=== PATIENT | female | born 1950 | race Hispanic/Latino ===

== ENCOUNTER 2017-03-06 08:58 | Day surgery (SDC) | payer MEDICARE, MEDICAID ==
[~2017-03-06] VITALS: Ht 154.9 cm; Wt 95.0 kg
[2017-03-06] VITALS (11 sets, daily range): BP systolic 123–152; BP diastolic 46–69; PULSE 55–79; RESP 16–26; O2SAT 96–99
--- NOTE | 2017-03-06 07:33 | PCM.HPANE ---
Patient Data Date of Service: Mar 06, 2017 Surgeon Admitting Provider: Attending Provider:Bridger Iraheta MD Primary Care Physician:Jimmy Zepeda MD Other Provider:Brandan Calvo Anesthesia Reason for Visit Cystocele,Rectocele,Vault Prolapse,Stress Incontin Ht/WT & BMI Height (Feet): 5 Height (Inches): 1.5 Weight (Kilograms): 98.24 Body Mass Index 40.00 Allergies Coded Allergies: ibuprofen (Verified Allergy, Unknown, tongue swelling, 03/05/17) Past Anesthesia History Anesthesia History: Denies:: Abnormal Airway, Anesthesia Reactions, Difficult Intubation, Fam Anesthesia Reaction, Fam Malignant Hypertherm, Malignant Hyperthermia Diabetes History Hx Diabetes?: No Type of Diabetes: Diet Controlled MRSA MRSA: No Medications Hypertension Medication: Yes Home Meds Incl Beta Rickey: Yes Reported Medications Leflunomide 20 Mg [id number] Mg PO 03/06/17 Albuterol HFA (Proair HFA)8.5 Gm Hfa.aer.ad2 Puffs INHALATION Q4H PRN For Shortness of Breath #1 INHALER 03/05/17 Paroxetine 10 Mg Afolgq80 Mg PO HS 30 Days Ref 0 03/05/17 Hydroxychloroquine Sulfate 200 Mg [id number] Mg PO DAILY #30 TABLET Ref 0 03/05/17 Atenolol 25 Mg [id number] Mg PO DAILY #30 TABLET Ref 0 03/05/17 Discontinued Reported Medications Atenolol-Expunged Drug, Do Not Renew! 25 Mg [id number] Mg PO DAILY 09/19/13 History History of ENT Problems?: Yes HEENT History: Positive for:: TMJ (poss grinds- had nightguard but lost it) Denies:: Abnormal Airway Cataracts Difficult Intubation Dysphagia Glaucoma Hearing Problem Sinus Problem Denture Type: None Teeth Condition: Within Normal Limits Broken Teeth Other HEENT Pertinent History: lost cap- upper left Hx of Heart Problems?: Yes Cardiovascular History: Positive for:: Hypertension Irregular Heartbeat (palpitations r/t stress) Denies:: AICD Abdominal Aortic Aneurism Atrial Fibrillation Cardiac Surgery Chest Pain Congestive Heart Failure Coronary Artery Disease Edema Heart Murmur Pacemaker Peripheral Vascular Rheumatic Fever Thrombophlebitis Valvular Heart Disease (echo 02/23- ef 60-65%, stress test 02/23) Hx of Respiratory Problem?: Yes Respiratory History: Positive for:: Asthma Dyspnea (thinks it is related to stress) Use of C-PAP Machine Use of Inhalers / NEBS Denies:: COPD Chest Surgery Cough Emphysema Hemoptysis Oxygen Administration Pneumonia Pulmonary Embolism Tuberculosis Hx Neurologic Problems?: No Neurological History: Denies:: Alzheimer's Disease CVA Dementia Dizziness Headaches Multiple Sclerosis Parkinson's Disease Peripheral Neuropathy Seizures TIA Hx of GI Problems?: Yes Gastrointestinal History: Denies:: Cirrhosis Diverticulitis Gall Bladder Disease Gastroesphageal Reflux Gastrointestinal Bleeding Heartburn Hepatitis Hiatal Hernia Liver Disease Rectal Bleeding Hx of Problems?: Yes Genitourinary History: Denies:: HX of Hemodialysis Kidney Stones Urinary Tract Infection HX of Peritoneal Dialysis: No Female Hx: Denies:: Currently Endometriosis Pelvic Inflammatory Problems with Breasts? Hx Musculoskeletal Problems?: Yes Musculoskeletal History: Positive for:: Back Injury (hx of back surgery) Musculoskeletal Trauma (sees ortho for knee injections, needing knee injections) Rheumatoid Arthritis Denies:: Degenerative Joint Fibromyalgia Joint Replacement Myasthenia Gravis Osteoarthritis Systemic Lupus Psycho Social History: Positive for:: Anxiety Hx Depression Denies:: Bipolar Disorder Suicide Attempt Hx Surgeries?: Yes (hysterectomy, appendix, tubal, back surgery, veins stripped , both knees) Hx Any Other Health Problems?: Yes Other History: Denies:: Cancer Endocrine Disease Hospitalization Thyroid Disease (hx of thyroid bx-) History Blood Transfusions: Denies:: Accept Blood Products? Blood Transfuse Reaction Blood Transfusions Hx Diabetes: No Hx Alcohol Use: NoHx Substance Use: No Smoking Status: Never Smoker Have You Smoked inLast 12 mo: No Stop/Bang P-Blood Pressure: treated: Yes B- Body Mass Index > 35 kg/m2: Yes A- Age over 50: Yes N- Neck Large Circumference: No G- Gender Male: No MINDY Risk Assessment: Low Risk, <3 Yes Risk Assessment Category Category 1A: Patient has history of documented sleep apnea, and HAS NOT received any narcotic, sedative or anesthesia administration during this stay. Category 1B: Patient has history of documented sleep apnea, and HAS received any narcotic , sedative or anesthesia administration during this stay Category 2: Patient has SUSPECTED Obstructive Sleep Apnea, and HAS received any narcotic , sedative or anesthesia administration during this stay. Category 3: Patient has SUSPECTED Obstructive Sleep Apnea and HAS NOT received narcotic, sedative or anesthesia administration during this stay. Category 4: Outpatient in Procedural Areas with known sleep apnea or who screen positive for High Risk via the STOP/BANG questionnaire. Exam Exam General Appearance: Alert, Oriented X3, Cooperative, No Acute Distress HEENT/AIRWAY: MP 2 Lungs: Clear to Auscultation, Normal Air Movement Heart: Exam Unremarkable, Regular Rate/Rhythm, No Murmurs/Rubs/Gallops Plan Impression Patient chart reviewed, patient interviewed and anesthestic plan with risks, benefits, and alternatives discussed, and informed consent obtained. NPO per Anesth. Guidelines: Yes ASA Physical Status: ASA2 Mod Systemic Disease Anesthetic Plan: GA Bene/Risks/Altern/Consents: Yes HP Complete Prior to Induction: Yes Dru Rodríguez MD Mar 06, 2017 07:32
[~2017-03-06 08:58] MED LIST: ALBU8.5H2 INHALATION; ATEN25TA PO; CeFAZolin Inj 2 GM in IV Premix 1 EACH IV SCH; HYDR200T5 PO; Lactated Ringer's 1,000 ML IV ONE; Lactated Ringer's 1,000 ML IV SCH; PARO10TA2 PO; Phenazopyridine 97.5 mg Tablet PO SCH
[2017-03-06] MEDS ORDERED: Neostigmine 1 mg/mL 10 mL Inj ONE (08:59)
[2017-03-06] MEDS ORDERED: Glycopyrrolate 0.2 MG/ML 1mL Inj ONE (08:59)
[2017-03-06] MEDS ORDERED: hydrALAZINE 20 mg/mL Inj ONE (08:59)
[2017-03-06] MEDS ORDERED: Rocuronium 10 mg/mL 5 mL Inj ONE (08:59)
[2017-03-06] MEDS ORDERED: fentaNYL-PF 50 mCg/mL 2 mL Inj ONE ×2 (08:59→16:41)
[2017-03-06] MEDS ORDERED: Succinylcholine Chloride 20 mg/mL 5 mL Inj ONE (08:59)
[2017-03-06] MEDS ORDERED: Propofol 10,000 mCg/mL 20 mL Inj ONE (08:59)
[2017-03-06] MEDS ORDERED: Ondansetron 2 mg/mL 2 mL Inj ONE (08:59)
[2017-03-06] MEDS ORDERED: Dexamethasone 4 mg/mL Inj ONE (08:59)
[2017-03-06] MEDS ORDERED: CeFAZolin 2 Gm/50 mL D5W Duplex Bag IV ONE (09:03)
[2017-03-06] MEDS ORDERED: Phenazopyridine 97.5 mg Tablet ONE (09:04)
[2017-03-06] MEDS ORDERED: LEFL20TA18 PO (10:15)
[2017-03-06] MEDS ORDERED: Lactated Ringer's 1,000 ML IV SCH (13:03)
[2017-03-06] MEDS ORDERED: Lactated Ringer's 500 ML IV PRN (13:03)
[2017-03-06] MEDS ORDERED: Ondansetron 2 mg/mL 2 mL Inj IVPUSH PRN ×2 (13:05→16:15)
[2017-03-06] MEDS ORDERED: MetoCLOpramide 5 mg/mL 2 mL Inj IVPUSH PRN ×2 (13:05→16:15)
[2017-03-06] MEDS ORDERED: EPHEDrine Sulfate 50 mg/mL Inj IVPUSH PRN (13:05)
[2017-03-06] MEDS ORDERED: Dexamethasone 4 mg/mL Inj IVPUSH PRN (13:05)
[2017-03-06] MEDS ORDERED: Phenylephrine 10,000 mCg/mL Inj IVPUSH PRN (13:05)
[2017-03-06] MEDS ORDERED: HYDROmorphone 1 mg/mL Inj IVPUSH PRN (13:05)
[2017-03-06] MEDS ORDERED: fentaNYL-PF 50 mCg/mL 2 mL Inj IVPUSH PRN (13:05)
[2017-03-06] MEDS ORDERED: Lidocaine 1%-Epi 1:100,000 20 mL Inj INJ ONE ×2 (13:07→14:56)
[2017-03-06] MEDS ORDERED: Gentamicin 40 mg/mL 2 mL Inj IRRIGATION ONE ×2 (13:07→14:49)
[2017-03-06] MEDS ORDERED: Sodium Chloride Bacteriostatic 30 mL Inj INJ ONE ×2 (13:07→14:57)
[2017-03-06] MEDS ORDERED: Lactated Ringer's 1,000 ML IV ONE (13:22)
[2017-03-06] MEDS ORDERED: Estrogens Conjugated 30 Gm Vaginal Cream VAGINAL ONE (15:52)
[2017-03-06] MEDS ORDERED: diphenhydrAMINE 25 mg Capsule PO PRN (16:15)
[2017-03-06] MEDS ORDERED: Acetaminophen IV 1,000 MG in IV Premix 1 EACH IV ONE (16:15)
[2017-03-06] MEDS ORDERED: Alum-Mag Hydrox-Simeth 30 mL Suspension PO PRN (16:15)
[2017-03-06] MEDS ORDERED: Albuterol HFA 60 Puff 8 Gm Inhaler INHALATION PRN (16:25)
--- NOTE | 2017-03-06 16:28 | PCM.ANEP1 ---
Post Anesthesia PACU Phase 1 Assessment Vital Signs Vital Signs Date Time Temp Pulse Resp B/P Pulse Ox O2 Delivery O2 Flow Rate FiO2 03/06/17 09:32 36.0 55 16 133/47 97 Room Air Anesthetic Administered: GA Level of Alertness: Sleepy, easy to arouse GOODMAN's with Equal Strength: Yes Pain: No Nausea or Vomiting: No CV Function & Hydration Stable: Yes Airway Device: Endotrachial Tube Oxygen Delivery: Simple Mask Lungs: Clear to Auscultation, Normal Air Movement Dermatome Level: Full Sensation PACU Phase 2 Assessment Complications: No Follow up Care: No Patient Instructions Provided: Yes rDu Rodríguez MD Mar 06, 2017 16:28
[2017-03-06] MEDS ORDERED: Albuterol 2.5 mg/3 mL Inhalation Solution NEB PRN (17:40)
[2017-03-06] MEDS: HYDROcodone-APAP 5-325 mg Tablet PO PRN (18:00)
--- NOTE | 2017-03-06 18:00 | NUR ---
received to room 1008 from PACU alert, oriented, speaks Mauritian fairly well, VSS, pt still quite uncomfortable, She has chronic back pain so had difficulty finding a comfortable position. 2 Vicodin given, pt still uncomfortable so gave 2mg Morphine. Conn has orange urine due to Pyridium. Scant vag bleeding. Family present
[2017-03-06] MEDS: 0.9% Sodium Chloride 1,000 ML IV SCH (18:08)
[2017-03-06 18:17] LABS: APPEARANCE,URINE CLEAR (CLEAR,HAZY); COLOR,URINE DARK YELLOW (YELLOW); OCCULT BLOOD,URINE NEGATIVE (NEGATIVE); PH,URINE 5.5 (5.0-8.0); UROBILINOGEN,URINE NORMAL (NORMAL)
[2017-03-06] MEDS: Insulin Human REGular 300 Unit/3 mL Inj SUBQ SCH (20:30)
[2017-03-06] MEDS ORDERED: PARoxetine 20 mg Tablet PO SCH (21:00)
[2017-03-07] VITALS: BP 165/72; PULSE 71; RESP 18; O2SAT 99
--- NOTE | 2017-03-07 01:49 | PCM.SURGOP ---
Surgical Operative Report Date of Service: Mar 06, 2017 Pre Operative Diagnosis 1. Rectocele N81.6 (618.04): 2. Cystocele, midline N81.11 (618.01): 3. 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 Urodynamic stress incontinence N39.3 Post Operative Diagnosis 1. POPQ stage 3 Rectocele N81.6 (618.04) and deficient rectovaginal fascia 2. POPQ stage 2 Cystocele, midline N81.11 (618.01): 3. 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 Urodynamic stress incontinence N39.3 Procedure: 1. anterior repair 2. posterior repair with Xenform biologic graft augmentation, 3. high uterosacral ligament vaginal vault suspension and enterocele repair 4. TVT-obturator sling and cystoscopy. Surgeon and Data Science And Iot Manager: Surgeon: Bridger Iraheta MD Assistants: Paul Love MD Indication for Procedure Her assessment to date includes: 1. Rectocele N81.6 (618.04): 2. Cystocele, midline N81.11 (618.01): 3. 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 Vaginal atrophy N95.2 (627.3): 5. 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 The patient is a candidate for surgical prolapse management in the form of anterior repair and posterior repair with possible Xenform biologic graft augmentation, high uterosacral ligament vaginal vault suspension and enterocele repair and TVT-obturator sling/cystoscopy. The patient signed the consent form. She agreed with the risks, benefits, and alternatives to surgery. The risks included but not limited to recurrence or persistence of prolapse, recurrence of persistence of incontinence, development of voiding dysfunction, development of urinary urgency, urgency incontinence, frequency, and need for intermittent self-catheterization or prolonged indwelling catheterization, injury to other organs including bladder, bowel, nerves or blood vessels, need for temporary colostomy or urinary stenting. Development of vaginal scarring, dyspareunia, defecatory dysfunction, recurring pain, hematoma formation, urinary tract infection, cellulitis, necrotizing fascitis, and medical risks including myocardial infarction, stroke or VTE. She also understood the FDA warnings associated with the use of vaginal mesh (dysparunia, vaginal erosion, erosion into bowel/bladder/urethra, requiring further surgery to correct these complications). The patient understood the risks and benefits and consented to surgery. She is a Faith and refuses blood transfusion. She understands that this could put her health in jeopardy if critically anemic or hemorrhaging. However after discussion with her jewish elders, she will accept fractions from red cells/white cells/platelets/plasma. Findings: see dictation Procedure Details SURGICAL TECHNIQUE: The patient was brought to the operating room and was placed under general anesthesia. She was prepped and draped in the normal fashion for vaginal surgery with the legs in Yellofin stirrups. She was given a dose of IV antibiotics intraoperatively. She received 200 mg of oral pyridium in the pre-operative holding area. 1..Posterior colpoperineorrhaphy with Xenform graft augmentation: Lidocaine 0.5 % with 1:200,000 of epinephrine was infiltrated along the perineum and posterior vaginal wall mucosa. A POPQ stage 3 apical and posterior vaginal prolapse was noted. A small, thin analisa-shaped wedge of perineum was excised. A Midline vertical incision was made through the posterior vagina with a scalpel. The vaginal mucosa was dissected off the underlying rectovaginal tissues. It was noted the fascial tissues were thin and deficient especially at the area of the apex and was composed mainly of adipose tissue. During the apical dissection, an enterocele sac was encountered and this was entered with sharp dissection with Metzenbaum scissors. We then proceeded with a vault suspension and would later resume with the posterior repair. 2. High uterosacral ligament vaginal vault suspension, cystoscopy & enterocele repair: Several mini laparotomy sponges were packed to retract the bowel upwards. A pair of Allis clamps were placed along the intraperitoneal portions of the vagina at the 5 and 7 o' clock positions. Tension along these Allis clamps allowed for identification of the uterosacral ligaments bilaterally. Also the ureters were carefully palpated to avoid penetrating them with suture. A pair of 0 Vicryl sutures were passed around the uterosacral ligaments of the level of the ischial spines bilaterally, totalling 4. Cystoscopy was performed while the vault sutures were placed under tension. Brisk spillage of pyridium-stained urine was noted at both ureteric orifices. Next, two 3-0 Prolene sutures were placed transversely through the cul-de-sac peritoneum. This was performed while using a gloved finger in the rectum as to avoid penetrating the underlying rectal mucosa. Tying these sutures obliterated the enterocele. The rectocele was plicated in a site-specific fashion first using 2-0 Vicryl suture in a circular, purse-string fashion along the apical and mid portion of the posterior segment, then in a midline plicated fashion with 2-0 Vicryl suture in an interrupted fashion. A rectangular piece of Xenform graft was then sutured above the plicated tissue. The apical portion of this graft was secured at the level of the enterocele repair using 2-0 vicryl suture. Laterally and distally the graft was secured using 2-0 Vicryl suture in interrupted fashion. Moderate excess posterior vaginal mucosa was needed to be excised. 3. Anterior colporrhaphy: Lidocaine 0.5% with 1/91472 epinephrine was infiltrated along the anterior vaginal wall mucosa. A POPQ stage 2 anterior vaginal descent was noted. A midline vertical incision was made through the anterior vaginal wall. The vaginal wall was dissected off the underlying pubocervical and pubovesical fascia. The dissection was extended laterally beyond the ischial pubic rami. It was noted that the pubocervical and pubovesical fascial tissues were not deficient or thin. No paravaginal defects were noted. The cystocele was plicated in 2 layers, the first layer with 2-0 Vicryl suture in interrupted fashion, the second layer with 2-0 Tycron suture in an interrupted fashion. No excess anterior vaginal mucosa needed to be excised. The high uterosacral ligament vaginal vault suspension sutures were passed through the planned apex of the vagina. The vagina was then reapproximated using 3-0 Vicryl suture in a running locked fashion. Perineum was reapproximated using 2-0 Vicryl suture in an interrupted fashion. The skin was reapproximated using 3-0 Vicryl suture in a subcuticular fashion. The high uterosacral ligament vaginal vault suspension sutures were tied and this elevated the apex of the vagina high up into the hollow of the sacrum. Vaginal exam allowed for the insertion of 3 gloved fingers. 4. TVT-Obturator sling and cystoscopy. Lidocaine 0.5% with epinephrine was infiltrated along the anterior vaginal wall mucosa at the level of the mid urethra. Midline vertical incision was made at that level, 2 periurethral tunnels were created with Metzenbaum scissors. Two stab incisions were created at the skin at the groin at a level 2 cm superior to the external urethral meatus and 2 cm lateral to the fold created between the vulva and thigh. Conn catheter had already been inserted. A butterfly guide was inserted into the right periurethral tunnel, a curved helical needle was inserted on top of the guide and rotated out to the ipsilateral skin incision. The same procedure was performed on the contralateral side. Next the Conn catheter was removed. Cystoscopy was performed. There was no inadvertent penetration of the sling to the vagina, urethra or bladder. Cystoscopy revealed a normal appearing urethra. Both ureteric orifices were visualized and noted to be functional by the brisk spillage of pyridium-stained urine. The 16F Conn catheter was then reinserted. The plastic sheaths of the sling were removed. The bladder was filled with 300 mL of sterile water. Using the Crede maneuver, sling tension was appropriately adjusted. Also a thick right angle clamp was allowed to easily pass behind the sling so that the sling was placed in a tension-free manner. The sling ends were cut at the level of the skin. The skin was reapproximated using Mastisol, Steri-Strips and band-aids. The vagina was reapproximated using 3-0 Vicryl suture in a running fashion. The estimated blood loss was approximately 200 mL. There were no complications. All sponges and instruments were accounted for. She will be observed overnight in a bed as she requires a voiding trial in the morning. Complications There were no periprocedural complications identified. Surgical Specimen Removed: No Specimen sent to Pathology: No Anesthetic Plan: GA Grafts, Implants: Grafts-See Implant Record, Implants-See Implant Record Output, Estimated Blood Loss: 200 (ml EBL) Blood Administration during iyer: No Drains: None Catheters: Urethral 2 Way Conn Post Operative Plan overnight stay in hospital for observation as she requires a voiding trial in the am copies to: Paul Love MD; Jimmy Zepeda MD; Colin Michaels MD; Bridger Iraheta MD, William Andre Z MD Mar 07, 2017 01:49
[2017-03-07] MEDS: 0.9% Sodium Chloride 1,000 ML IV SCH ×3 (02:08→16:14)
[2017-03-07] MEDS: Insulin Human REGular 300 Unit/3 mL Inj SUBQ SCH ×3 (02:30→14:30)
[2017-03-07] MEDS: HYDROcodone-APAP 5-325 mg Tablet PO PRN ×4 (04:18→18:15)
--- NOTE | 2017-03-07 04:31 | NUR ---
PAIN/ANXIETY: Pt. with a lot of c/o pain on her bottom at the start of the shift, given MS IV x2, later on this am, given 2 Vicodin. Pt. states she is feeling better today. Conn with good output orange colored. K-pad to abdomen very helpful per pt.'s report. Family at her side tonight. A & O, vss. On going care.
[2017-03-07 04:44] VITALS: BP 159/73; PULSE 69; RESP 18; O2SAT 96
[2017-03-07 05:43] LABS: BASOPHILS % (AUTO) 0.1 % (0-3); EOSINOPHILS % (AUTO) 0 % (0-5); MONOCYTES % (AUTO) 6.7 % (4-12); Mean Corpuscular Volume 90.6 fL (81-100); NEUTROPHILS % (AUTO) 85.9 % (40-74); Platelet Count 236 bil/L (150-400)
[2017-03-07] MEDS: Heparin 5,000 Unit/mL Inj SUBQ SCH ×2 (08:11→16:30)
[2017-03-07] MEDS ORDERED: Hydroxychloroqine 200 mg Tablet PO SCH (08:30)
[2017-03-07] MEDS ORDERED: [UNRECOGNIZED DRUG - OTHER] PO SCH (08:30)
[2017-03-07] MEDS ORDERED: Senna-Docusate 8.6-50 mg Tablet PO SCH (08:30)
[2017-03-07 08:50] VITALS: BP 130/69; PULSE 79; RESP 18; O2SAT 97
--- NOTE | 2017-03-07 12:08 | PCM.DIGYN ---
Surgical Discharge Instruction Dates of Hospitalization Date of Hospital Admission 03/06/17 outpatient Providers Admitting Physician: Primary Care Physician: Jimmy Zepeda MD Attending Physician: Bridger Iraheta MD Diagnosis at Time of Discharge Diagnosis at time of discharge 1. POPQ stage 3 Rectocele N81.6 (618.04) and deficient rectovaginal fascia 2. POPQ stage 2 Cystocele, midline N81.11 (618.01): 3. 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 Urodynamic stress incontinence N39.3 Post-operative diagnosis 1. POPQ stage 3 Rectocele N81.6 (618.04) and deficient rectovaginal fascia 2. POPQ stage 2 Cystocele, midline N81.11 (618.01): 3. 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 Urodynamic stress incontinence N39.3 Problems: Diet Discharge Diet: Diabetic Activity Discharge Activity-General: Restrict lifting to no greater than (10 lb for 6 wk ) Dressing and Incisional Care Dressing Care: Allow Steri Stripes to fall off Hygiene: May shower Follow Up Plan Follow-up appointment: Weeks ([address] Iraheta; if home with guilherme, see his MA in 1 wk also ) Call your provider for: Fever, Chills, Shortness of breath, Vomitting, Drainage at incision, Heavy vaginal bleeding, Wound redness, Increasing pain Bridger Iraheta MD Mar 07, 2017 12:08
[2017-03-07 12:56] VITALS: BP 132/73; PULSE 65; RESP 18; O2SAT 96
--- NOTE | 2017-03-07 14:21 | NUR ---
voiding trial pt was unable to void after Conn removed, she tried for over an hour. Finally placed Conn with plug and taught pt how to empty bladder every 2-3 hours. She will be discharging this evening after dinner. She has been taking clear liquids without nausea, scant vag drainage, good urine out put, good pain control. has not passed flatus yet
[2017-03-07 17:27] VITALS: BP 145/73; PULSE 68; RESP 16; O2SAT 96
--- NOTE | 2017-03-07 19:27 | NUR ---
pt discharging home with family. Has been taught how to care for Conn and has been caring for it herself. Has Rx already filled, daughter picked them up. taking fluids well. ambulating, good pain control. adequate UOP, scant vag bleeding, passing gas, denies nausea
--- NOTE | 2017-03-07 20:12 | PCM.PNSURG ---
Subjective Date of Service: Mar 07, 2017 Date of Service: Mar 07, 2017 Visit Information: Reason for Visit Cystocele,Rectocele,Vault Prolapse,Stress Incontinence Surgery/Surgery Date 03/06/17 Post-Op Day # 1 Subjective: AVSS pain control adequate failed voiding trial eating well Hct stable ambulating OR explained Postop General: No Complaints Gastrointestinal: Good Appetite Pain Management: PO Postop Activity: Ambulating Independently Objective Vital Sign- Last 8 Hours Date Time Temp Pulse Resp B/P Pulse Ox O2 Delivery O2 Flow Rate FiO2 03/07/17 17:27 36.6 68 16 145/73 96 Room Air 03/07/17 12:56 36.7 65 18 132/73 96 Room Air Intake and Output- Last 8 Hour 03/07/17 Cumulative From/Thru 07:00 03/05/17 11:00 - 03/07/17 06:10 Intake Total 2226 ml 3476 ml Output Total 1000 ml 1920 ml Balance 1226 ml 1556 ml Intake Oral 700 ml 700 ml IV Total 1526 ml 2776 ml Output Urine Total 800 ml 1520 ml Estimated Blood Loss 200 ml 400 ml # Bowel Movements 0 0 General: Alert, Oriented X3, Cooperative Lungs: Clear to Auscultation Catheters: Urethral 2 Way Conn Result Diagram: 03/07/17 0505 Assessment & Plan Impression POD#1 stable Problems: Plan D/C home f/u in 1 wk for a voiding trial with Dr. Iraheta's MA f/u in [address] Iraheta copies to: Bridger Iraheta MD, William Andre Z MD Mar 07, 2017 20:12
--- NOTE | 2017-03-07 23:11 | NUR ---
Discharge Patient left unit at 2016 with family via wheelchair. All questions were addressed by day shift nurse during discharge instructions and education, and has no further questions. IV has also been Dc'd prior to shift change.Patient had no further complaints, and discharge papers as well as all belongings left with patient and family.
== END 2017-03-07 18:00 | disposition home or self-care (01) ==
LOC: SAS 08:58 → OSC 17:33 → SAS 03-07 18:00
PROVIDERS: ATTEND Obstetrics & Gynecology
DX: N99.3 Prolapse of vaginal vault after hysterectomy (principal); N81.6 Rectocele; N81.11 Cystocele, midline; N95.2 Postmenopausal atrophic vaginitis; N39.46 Mixed incontinence; R33.9 Retention of urine, unspecified; I10 Essential (primary) hypertension; E11.9 Type 2 diabetes mellitus without complications; F41.8 Other specified anxiety disorders; M06.9 Rheumatoid arthritis, unspecified; J45.909 Unspecified asthma, uncomplicated; G47.33 Obstructive sleep apnea (adult) (pediatric); G25.81 Restless legs syndrome; E66.01 Morbid (severe) obesity due to excess calories; Z68.41 Body mass index [BMI] 40.0-44.9, adult; Z90.710 Acquired absence of both cervix and uterus
CPT/HCPCS: 36415; 57265; 57267; 57283; 57288; 81000; 85025; 87086; C1763; C1771; J0131; J0330; J0360; J0690; J1100; J1580; J1644; J2270; J2405; J2710; J3010; J7030; J7120